=== PATIENT | female | born 1995 ===

== ENCOUNTER 2021-04-10 15:26 | Outpatient (CLI) | payer OTHER ==
--- NOTE | 2021-04-10 17:34 | Ultrasound Report ---
ULTRASOUND OBSTETRIC LIMITED INDICATION / CLINICAL INFORMATION: WELL BEING. Clinical Gestational Age (GA): 38.4 weeks.days COMPARISON: None available. FINDINGS: HEART RATE (beats per minute): 150 AMNIOTIC FLUID INDEX (cm) = 15.3 (normal = 7-24 cm) PRESENTATION: Cephalic. ADDITIONAL FINDINGS: None. IMPRESSION: 1. No significant abnormality. Signer Name: Nico Marin MD Signed: 04/10/2021 5:30 PM Workstation Name: [id number]
== END 2021-04-10 18:15 | disposition home or self-care (01) ==
LOC: TRG 15:26 → APU 15:29 → TRG 18:15
PROVIDERS: ATTEND Obstetrics & Gynecology
DX: O36.8130 Decreased fetal movements, third trimester, not applicable or unspecified (principal); Z3A.38 38 weeks gestation of pregnancy
CPT/HCPCS: 59025; 76815

== ENCOUNTER 2021-04-13 02:54 | Inpatient (IN) | payer MEDICAID, OTHER ==
[2021-04-13] MEDS ORDERED: MINERAL OIL 30 ML ORAL LIQD PO PRN (03:50)
[2021-04-13] MEDS ORDERED: fentaNYL 100 MCG/2 ML INJ IV PRN (03:50)
[2021-04-13] MEDS ORDERED: TERBUTALINE 1 MG/1 ML INJ SUB-Q PRN (03:50)
[2021-04-13] MEDS ORDERED: LIDOCAINE (2%) 20 MG/1 ML VIAL 20 ML MDV INFILTRATI ONE (03:50)
[2021-04-13] MEDS ORDERED: NalbUPHINE 10 MG/1 ML INJ IV PRN ×2 (03:50→13:51)
[2021-04-13] MEDS ORDERED: PROMETHAZINE 25 MG TAB PO PRN ×2 (03:50→20:31)
[2021-04-13] MEDS ORDERED: NALOXONE 0.4 MG/1 ML INJ IV PRN (03:50)
[2021-04-13] MEDS ORDERED: ePHEDrine SULFATE 50 MG/1 ML INJ IV PRN (03:50)
[2021-04-13] MEDS ORDERED: OXYTOCIN DRIP 30 UNITS/500 ML BAG IV SCH ×2 (04:00)
--- NOTE | 2021-04-13 04:04 | History and Physical Report ---
History of Present Illness Date of examination: 04/13/21 Date of admission: 04/13/21 Chief complaint: SROM at 2am today History of present illness: at 39.0 wks by 8wk ultrasound not c/w LMP. care at [facility]. Pt c/o LOF at 2am and then came here. Admits to movement. Ctx started at 11pm last night. Denies headache or vaginal bleeding. Partner of pt states pt desires epidural later for pain. Pt speaks english only. Pt came with her records, Rh positive, neg Antibody screen, RPR neg, HepBsAg neg, HIV neg and rubella immune. Past History Past Medical History: no pertinent history Past Surgical History: no surgical history Social history: no significant social history - Obstetrical History Expected Date of Delivery: 04/20/21 Actual Gestation: 39 Week(s) 0 Day(s) : 1 Number of Living Children: 0 Medications and Allergies Allergies Allergy/AdvReac Type Severity Reaction Status Date / Time No Known Allergies Allergy Unverified 04/10/21 16:50 Home Medications Medication Instructions Recorded Confirmed Last Taken Type No Known Home Medications [No 04/10/21 04/10/21 Unknown History Reported Home Medications] Active Meds: Active Medications Ephedrine Sulfate (Ephedrine Sulfate 50 Mg/1 Ml Inj) 10 mg IV Q2M PRN PRN Reason: Hypotension Fentanyl (Fentanyl 100 Mcg/2 Ml Inj) 100 mcg IV Q2H PRN PRN Reason: Pain,Severe (7-10) LABOR PAIN Oxytocin/Sodium Chloride (Pitocin/Ns 30 Unit/500ml) 30 units in 500 mls @ 2 mls/hr IV TITR DARIEN; Protocol Lactated Ringer's (Lactated Ringers) 1,000 mls @ 125 mls/hr IV DIRECT DARIEN Oxytocin/Sodium Chloride (Pitocin/Ns 30 Unit/500ml) 30 units in 500 mls @ 40 mls/hr IV TITR DARIEN; Protocol Lidocaine (Lidocaine (2%) 20 Mg/1 Ml Vial 20 Ml Mdv) 20 ml INFILTRATI ONCE ONE Stop: 04/13/21 03:51 Mineral Oil (Mineral Oil 30 Ml Oral Liqd) 30 ml PO QHS PRN PRN Reason: Constipation Nalbuphine HCl (Nalbuphine 10 Mg/1 Ml Inj) 10 mg IV Q2H PRN PRN Reason: Pain, Moderate (4-6) Naloxone HCl (Naloxone 0.4 Mg/1 Ml Inj) 0.1 mg IV Q2MIN PRN PRN Reason: Res Rate </= 8 or 02 SAT < 92% Promethazine HCl (Promethazine 25 Mg Tab) 25 mg PO Q6H PRN PRN Reason: Nausea And Vomiting Terbutaline Sulfate (Terbutaline 1 Mg/1 Ml Inj) 0.25 mg SUB-Q ONCE PRN PRN Reason: Hyperstimulation/Hypertonicity Review of Systems All systems: negative (SROM and ctx) - Vital Signs Vital signs: Vital Signs Temp 99 F 04/13/21 03:12 Temp Pulse Resp BP Pulse Ox 99 F 93 H 128/76 04/13/21 03:12 04/13/21 03:27 04/13/21 03:27 - Physical Exam Breasts: Positive: deferred Cardiovascular: Regular rate Lungs: Positive: Normal air movement Genitourinary (Female): Positive: normal external genitalia Uterus: Positive: enlarged (non-tender, gravid) Extremities: Positive: normal - Obstetrical FHR: category 1 Uterine Contraction Monitor Mode: External Cervical Dilatation: 2.5 (per triage nurse) Cervical Effacement Percentage: 70 station: -3 Uterine Contraction Pattern: Irregular Results All other labs normal. Assessment and Plan Term IUP with SROM, large baby for gestation; GBS negative 1. Admit for labor and delivery and do routine labs 2. U/S for wt with pt stating baby wt was last done 1month ago and 7lbs 11oz 3. may have IV pain or epidural when desired 4. Plan of care discussed, using blocker and polisher and pt desires trial of labor. All questions encouraged and answered
[2021-04-13 04:35] LABS: Hematocrit 39.9 % (30.3-42.9); Hemoglobin 13.8 gm/dl (10.1-14.3); Mean Corpuscular HGB Conc 35 % (30-34); Mean Corpuscular Volume 93 fl (79-97); Platelet Count 192 K/mm3 (140-440); Red Blood Count 4.28 M/mm3 (3.65-5.03); Red Cell Distribution Width 13.2 % (13.2-15.2)
[2021-04-13] MEDS: LACTATED RINGERS 1,000 ML IV SCH ×2 (04:54→12:06)
--- NOTE | 2021-04-13 04:55 | Ultrasound Report ---
Limited obstetrical ultrasound INDICATION: Term COMPARISON: 04/10/2021 FINDINGS: Term intrauterine is again noted with estimated gestational age of 38 weeks 2 day s which corresponds to the clinical dating of 39 weeks 0 days. cardiac activity was documented at 150 bpm period posterior placenta is free of the internal cervical os. Amniotic fluid volume appea rs within normal limits with SHIRLEY within normal limits at 8.8 cm. Estimated weight is 3469 +/- 5 13 g in the 53rd percentile. Fetus is in a cephalic position. Anatomic survey was not performed. Signer Name: Balwinder Marx MD Signed: 04/13/2021 4:50 AM Workstation Name: [id number]
--- NOTE | 2021-04-13 10:07 | Progress Note ---
Assessment and Plan A: IUP@ 39 wks with SROM Neg GBS p: Continuous monitoring Pain med/Epidural prn Anticipate Subjective - Subjective Date of service: 04/13/21 Principal diagnosis: IUP@ 39 wks Patient reports: movement normal Objective - Vital Signs Vital Signs: Vital Signs - 12hr 04/13/21 04/13/21 04/13/21 03:12 03:27 05:01 Temperature 99 F 98.9 F Pulse Rate 93 H 81 Respiratory 15 Rate Blood Pressure 128/76 115/61 O2 Sat by Pulse Oximetry 04/13/21 04/13/21 04/13/21 07:06 07:35 08:06 Temperature Pulse Rate 77 80 78 Respiratory Rate Blood Pressure 118/57 106/57 122/75 O2 Sat by Pulse Oximetry 04/13/21 04/13/21 04/13/21 08:11 08:24 08:26 Temperature 97.9 F Pulse Rate 85 82 Respiratory 20 Rate Blood Pressure 113/65 O2 Sat by Pulse 98 98 Oximetry 04/13/21 04/13/21 04/13/21 08:31 08:36 08:41 Temperature Pulse Rate 82 90 80 Respiratory Rate Blood Pressure O2 Sat by Pulse 97 97 97 Oximetry 04/13/21 04/13/21 04/13/21 08:46 08:51 08:56 Temperature Pulse Rate 74 80 81 Respiratory Rate Blood Pressure O2 Sat by Pulse 97 96 96 Oximetry 04/13/21 04/13/21 04/13/21 09:01 09:06 09:11 Temperature Pulse Rate 78 87 77 Respiratory Rate Blood Pressure O2 Sat by Pulse 97 96 96 Oximetry 04/13/21 04/13/21 04/13/21 09:16 09:21 09:24 Temperature Pulse Rate 90 82 83 Respiratory Rate Blood Pressure 123/76 O2 Sat by Pulse 95 96 Oximetry 04/13/21 04/13/21 04/13/21 09:26 09:31 09:36 Temperature Pulse Rate 85 82 76 Respiratory Rate Blood Pressure O2 Sat by Pulse 96 97 96 Oximetry 04/13/21 04/13/21 04/13/21 09:48 09:53 09:58 Temperature Pulse Rate 77 95 H 81 Respiratory Rate Blood Pressure O2 Sat by Pulse 97 96 96 Oximetry - Exam Breasts: normal Abdomen: Present: normal appearance, soft, normal bowel sounds Vulva: both: normal Uterus: Present: normal FHR: auscultation normal, category 1 Uterine Contraction Monitor Mode: External Cervical Dilatation: 4 Cervical Effacement Percentage: 80 station: -2 Uterine Contraction Pattern: Irregular Uterine Tone Measurement Phase: Resting Uterine Contraction Intensity: Mild Extremities: normal - Labs Labs: Abnormal Labs 04/13/21 03:45 WBC 12.0 H MCHC 35 H Laboratory Results - last 24 hr 04/13/21 04/13/21 04/13/21 03:45 03:45 03:45 WBC 12.0 H RBC 4.28 Hgb 13.8 Hct 39.9 MCV 93 MCH 32 MCHC 35 H RDW 13.2 Plt Count 192 Syphilis IgG Antibody Nonreactive Blood Type O POSITIVE Antibody Screen Positive Antibody Identification Negative
--- NOTE | 2021-04-13 13:50 | Anesthesia Consultation ---
Anesthesia Consult and Med Hx Date of service: 04/13/21 - Airway Anesthetic Teeth Evaluation: Good ROM Head & Neck: Adequate Mental/Hyoid Distance: Adequate Mallampati Class: Class II Intubation Access Assessment: Probably Good - Pulmonary Exam CTA: Yes - Cardiac Exam Cardiac Exam: RRR - Pre-Operative Health Status ASA Pre-Surgery Classification: ASA2 Proposed Anesthetic Plan: Epidural - Pulmonary Hx Smoking: No Hx Asthma: No Hx Sleep Apnea: No - Cardiovascular System Hx Hypertension: No Hx Heart Attack/AMI: No Hx Angina: No - Central Nervous System Hx Seizures: No Hx Psychiatric Problems: No - Gastrointestinal Hx Gastroesophageal Reflux Disease: No - Endocrine Hx Renal Disease: No Hx Liver Disease: No Hx Insulin Dependent Diabetes: No Hx Non-Insulin Dependent Diabetes: No Hx Hypothyroidism: No Hx Hyperthyroidism: No - Hematic Hx Anemia: No Hx Sickle Cell Disease: No - Other Systems Hx Alcohol Use: No Hx Obesity: Yes
[2021-04-13] MEDS ORDERED: diphenhydrAMINE 50 MG/ML VIAL IV PRN (13:51)
[2021-04-13] MEDS ORDERED: NALOXONE 2 MG/2 ML INJ IV PRN (13:51)
[2021-04-13] MEDS ORDERED: ONDANSETRON 4 MG/2 ML INJ IV PRN ×2 (13:51→20:31)
--- NOTE | 2021-04-13 13:51 | Progress Note ---
Labor Epidural - Labor Epidural Start Time: 13:36 Stop Time: 13:47 Performed by:: LILLIANA MARTIN Procedure: Patient is requesting epidural for labor and pain. H&P, labs were reviewed. Patient IDed, H&P reviewed, all questions and concerns were answered, and consent was signed. Timeout was performed at bedside. Patient in sitting position. Sterile prep and drape was performed. 3ml of 1% lidocaine skin wheal at L[3]- L [4]. 18-gauge Tuohy epidural needle was advanced to loss of resistance with saline technique 6cm. Negative CSF negative blood. Epidural catheter advanced to [111] centimeters. [negative] Aspiration [negative] test d ose. Sterile dressing applied. Patient tolerated procedure.
[2021-04-13] MEDS ORDERED: LACTATED RINGERS 250 ML IV SOLN IV ONE (14:51)
[2021-04-13] MEDS ORDERED: fentaNYL-BUPIV 2 MCG/ML-0.125% 200 MCG/100 ML BAG EPIDURAL SCH (15:00)
[2021-04-13] MEDS ORDERED: BENZOCAINE/MENTHOL 20/0.5% TOP SPRAY 56 GM TP PRN (20:31)
[2021-04-13] MEDS ORDERED: MAGNESIUM HYDROXIDE (MOM) ORAL LIQD UDC PO PRN (20:31)
[2021-04-13] MEDS ORDERED: WITCH HAZEL/ GLYCERIN PAD TP PRN (20:31)
[2021-04-13] MEDS ORDERED: HYDROCORTISONE 25 MG RECTAL SUPP PR PRN (20:31)
[2021-04-13] MEDS ORDERED: diphenhydrAMINE 25 MG CAP PO PRN (20:31)
[2021-04-13] MEDS ORDERED: LANOLIN/ZINC/DIMETHICONE (LANSINOH) 7 GM TP PRN ×2 (20:31)
[2021-04-13] MEDS ORDERED: oxyCODONE /ACETAMINOPHEN 5-325MG TAB PO PRN (20:31)
[2021-04-13] MEDS ORDERED: ACETAMINOPHEN 325 MG TAB PO PRN (20:31)
[2021-04-13] MEDS ORDERED: PROMETHAZINE 25 MG RECT SUPP PR PRN (20:31)
--- NOTE | 2021-04-13 20:34 | Procedure Note ---
OB Delivery Note - Delivery Date of Delivery: 04/13/21 Surgeon: ARIC LANDAVERDE JR Estimated blood loss: 200cc - Vaginal Delivery presentation: vertex Delivery position: OA Intrapartum events: none Delivery induction: oxytocin Delivery augmentation: pitocin Delivery monitor: external FHT, external uterine Route of delivery: Delivery placenta: spontaneous Delivery cord: other (body cord x 1) Episiotomy: none Delivery laceration: 2nd degree Delivery repair: vicryl Anesthesia: epidural Delivery comments: Spontaneous delivery of female infant at 2006 with direct bonding with mom after delivery. Weight 3590g, Ht 19.5 in. APGARS 8/9. Second degree perineal laceration repaired with 2-0 Vicryl. Fundus firm below the umbilicus. - Infant A at 1 minute: 8 at 5 minutes: 9 Infant Gender: Female
[2021-04-13] MEDS: IBUPROFEN 600 MG TAB PO SCH (23:40)
[2021-04-14] MEDS: IBUPROFEN 600 MG TAB PO SCH ×3 (05:48→18:20)
[2021-04-14 08:50] LABS: Hematocrit 34.4 % (30.3-42.9); Hemoglobin 11.7 gm/dl (10.1-14.3)
[2021-04-14] MEDS ORDERED: PRENATAL VIT27-FE FUMARATE-FOLIC ACID VIT TAB PO SCH (10:00)
--- NOTE | 2021-04-14 11:10 | Progress Note ---
Assessment and Plan A: PP Day #1 Stable P: Follow Routine Orders D/C Home today per patient request RTO in 6 Weeks Subjective - Subjective Date of service: 04/14/21 Principal diagnosis: IUP@ 39 wks Patient reports: appetite normal, voiding normally, pain well controlled, flatus, ambulating normally [place]: doing well, bottle feeding (and ) Objective - Vital Signs Latest vital signs: Vital Signs Temp Pulse Resp BP Pulse Ox 04/14/21 08:07 97.6 F 79 18 109/59 98 04/14/21 06:43 18 04/14/21 05:48 18 04/14/21 05:19 98.1 F 85 18 93/53 97 04/14/21 00:40 18 04/13/21 23:40 18 04/13/21 22:15 98.5 F 04/13/21 22:05 95 H 97 04/13/21 22:00 89 96 04/13/21 21:55 93 H 97 04/13/21 21:50 93 H 97 04/13/21 21:47 90 107/66 04/13/21 21:45 94 H 97 04/13/21 21:40 99 H 96 04/13/21 21:35 94 H 95 04/13/21 21:30 93 H 96 04/13/21 21:25 94 H 97 04/13/21 21:20 99 H 98 04/13/21 21:17 98 H 126/58 04/13/21 21:15 102 H 99 04/13/21 21:10 103 H 98 04/13/21 21:05 99 H 97 04/13/21 21:00 99 H 97 04/13/21 20:55 99 H 96 04/13/21 20:50 89 98 04/13/21 20:47 98 H 112/58 04/13/21 20:45 102 H 96 04/13/21 20:40 98 H 96 04/13/21 20:35 92 H 96 04/13/21 20:30 107 H 98 04/13/21 20:25 92 H 98 04/13/21 20:20 92 H 122/69 98 04/13/21 20:17 96 H 116/68 04/13/21 20:15 98 H 98 04/13/21 20:10 105 H 98 04/13/21 20:05 122 H 100 05/25/21 20:00 110 H 99 05 19:55 107 H 100 05 19:54 77 88 05 19:50 102 H 98 05 19:48 95 H 122/67 05 19:45 106 H 97 05 19:40 124 H 97 05 19:35 95 H 99 05 19:33 97.9 F 05 19:30 87 100 05 19:25 100 H 100 05 19:20 102 H 100 05 19:17 93 H 108/58 05 19:15 96 H 100 05 19:10 86 100 04/13/21 19:05 109 H 100 04/13/21 19:00 107 H 100 04/13/21 18:55 102 H 100 04/13/21 18:50 105 H 99 04/13/21 18:47 108 H 109/58 04/13/21 18:45 116 H 99 05 18:40 115 H 99 05 18:35 146 H 98 05 18:34 133 H 108/50 05 18:30 59 L 94 04/13/21 18:25 127 H 99 05 18:20 124 H 99 04/13/21 18:18 120 H 122/53 05 18:15 111 H 97 04/13/21 18:10 116 H 97 04/13/21 18:07 133 H 89 04/13/21 18:05 107 H 98 05 18:03 120 H 136/69 05 18:00 120 H 97 05 17:55 103 H 97 05 17:50 93 H 97 05 17:48 94 H 107/60 05 17:45 91 H 96 05 17:43 87 94 05 17:40 82 94 05 17:37 79 94 05 17:35 78 95 05 17:33 79 105/57 05 17:30 81 96 05 17:27 83 94 04/13/21 17:25 89 96 05 17:20 92 H 95 04/13/21 17:18 94 H 106/60 05 17:15 91 H 96 04/13/21 17:10 95 H 97 04/13/21 17:07 98.7 F 04/13/21 17:05 95 H 96 04/13/21 17:00 100 H 96 04/13/21 16:59 86 94 04/13/21 16:55 85 94 04/13/21 16:50 84 96 04/13/21 16:47 80 116/63 05 16:45 84 96 04/13/21 16:40 85 96 04/13/21 16:35 82 97 04/13/21 16:33 88 126/69 05 16:30 88 96 04/13/21 16:25 91 H 97 04/13/21 16:20 85 97 04/13/21 16:17 86 114/67 04/13/21 16:15 89 97 04/13/21 16:13 96 H 94 04/13/21 16:10 84 96 04/13/21 16:09 98.1 F 16 04/13/21 16:05 92 H 96 04/13/21 16:02 83 115/58 04/13/21 16:00 88 95 04/13/21 15:55 74 96 04/13/21 15:53 82 94 04/13/21 15:50 91 H 93 04/13/21 15:48 78 117/57 05 15:47 88 94 04/13/21 15:45 74 96 05 15:42 86 92 05 15:40 76 96 05 15:36 87 94 05 15:35 83 95 05 15:32 76 117/63 05 15:31 90 94 05 15:30 83 96 05 15:25 75 98 05 15:20 86 95 05 15:17 81 118/69 05/ 15:15 87 96 05 15:10 82 96 05 15:05 77 96 05 15:03 75 118/65 05 15:00 88 96 05 14:55 78 96 05 14:53 83 94 05 14:50 74 96 05 14:48 75 118/59 05 14:45 76 96 05 14:42 88 94 05 14:40 74 96 05 14:35 83 97 05 14:30 81 118/65 97 05 14:27 78 115/60 05 14:25 77 97 05 14:24 80 116/61 05 14:21 84 113/58 05 14:20 79 96 05 14:18 73 109/59 05 14:15 76 107/55 96 05 14:12 74 105/56 05 14:10 75 97 05 14:09 75 110/57 05 14:06 83 107/58 05 14:05 82 97 05 14:03 78 107/57 05 14:00 76 109/56 96 05 13:57 75 107/59 05 13:55 82 98 05 13:54 76 105/57 05 13:51 82 114/65 05 13:50 87 97 05 13:48 93 H 123/73 05 13:45 89 129/76 97 05 13:40 91 H 97 05 13:35 93 H 97 05 13:30 100 H 96 05 13:25 86 96 05 13:24 91 H 130/74 05 13:20 88 98 05 13:16 89 94 05 13:15 88 94 05 13:10 80 96 05 13:09 90 93 05 13:05 84 97 05 12:53 90 96 05 12:48 85 97 05 12:47 94 H 93 05/25/21 12:43 81 95 04/13/21 12:38 83 97 04/13/21 12:33 80 95 04/13/21 12:32 91 H 93 04/13/21 12:28 83 95 04/13/21 12:24 86 128/58 04/13/21 12:23 84 95 04/13/21 12:18 81 96 04/13/21 12:13 89 94 04/13/21 12:09 98.5 F 04/13/21 12:08 80 96 04/13/21 12:03 76 97 04/13/21 11:59 18 04/13/21 11:58 90 97 04/13/21 11:53 86 97 04/13/21 11:48 87 97 04/13/21 11:43 82 96 04/13/21 11:38 85 96 04/13/21 11:33 86 96 04/13/21 11:28 75 97 04/13/21 11:24 83 114/70 04/13/21 11:23 83 97 04/13/21 11:18 89 98 04/13/21 11:13 82 97 04/13/21 11:11 86 94 Intake and Output 04/13/21 04/14/21 04/14/21 22:59 06:59 14:59 Intake Total 43.7 480 Output Total 300 600 Balance -256.3 -120 Intake: IV 43.7 PITOCin/NS 30 UNIT/500ML 43.7 30 units In 500 ml @ 2 mls/hr IV TITR DARIEN Rx#: [id number] Oral 480 Output: Urine 300 600 Indwelling Catheter 300 Void 600 Other: Total, Intake Amount 480 Total, Output Amount 300 600 Estimated Blood Loss 200 - Exam Breasts: Present: normal Cardiovascular: Present: Regular rate Lungs: Present: Clear to auscultation, Normal air movement Abdomen: Present: normal appearance, soft, normal bowel sounds Uterus: Present: normal, firm, fundal height at umbilicus Extremities: Present: normal
--- NOTE | 2021-04-14 11:11 | Discharge Summary ---
Providers - Providers Date of Admission: 04/13/21 03:51 Date of discharge: 04/14/21 Attending physician: ELY FINCH Primary care physician: ELY FINCH Hospitalization Reason for admission: rupture of membranes Delivery: Episiotomy: none Laceration: 2nd degree Other procedures: none complications: none Discharge diagnosis: IUP at term delivered [place] baby: female Condition at discharge: Good Disposition: DC-01 TO HOME OR SELFCARE Plan - Provider Discharge Summary Activity: routine, no sex for 6 weeks, no heavy lifting 4 weeks, no strenuous exercise Diet: routine Instructions: routine Additional instructions: [] Smoking cessation referral if applicable(refer to patient education folder for contact #) [] Refer to [facility]'s [facility] Booklet Call your doctor immediately for: * Fever > 100.5 * Heavy vaginal bleeding ( >1 pad per hour) * Severe persistent headache * Shortness of breath * Reddened, hot, painful area to leg or breast * Drainage or odor from incision. * Keep incision clean and dry at all times and follow doctor's instructions regarding bathing/showering - Follow up plan Follow up: ELY FINCH MD [Primary Care Provider] - 6 Weeks
[2021-04-14 17:29] VITALS: BP 108/64
--- NOTE | 2021-04-14 20:06 | Post Anesthesia Evaluation ---
- Post Anesthesia Evaluation Patient Participated: Yes Airway Patent: Yes Stable Respiratory Function: Yes Nausea/Vomiting: No Temp > 96.8F: Yes Pain Manageable: Yes Adequeate Hydration: Yes Anesthesia Complications: No Block Receding Appropriately: Yes Patient on Ventilator: No
== END 2021-04-14 22:05 | disposition home or self-care (01) | DRG 807 ==
LOC: TRG 02:54 → APU 03:02 → TRG 03:50 → LD 03:51 → OBSVTOIN 03:51 → OB 22:24
PROVIDERS: ADMIT Obstetrics & Gynecology; ATTEND Obstetrics & Gynecology
PROC: 3E033VJ Introduction of Other Hormone into Peripheral Vein, Percutaneous Approach (ICD-10-PCS; principal; 2021-04-13)
PROC: 10E0XZZ Delivery of Products of Conception, External Approach (ICD-10-PCS; 2021-04-13)
PROC: 0KQM0ZZ Repair Perineum Muscle, Open Approach (ICD-10-PCS; 2021-04-13)
PROC: 3E0R3BZ Introduction of Anesthetic Agent into Spinal Canal, Percutaneous Approach (ICD-10-PCS; 2021-04-13)
PROC: 00HU33Z Insertion of Infusion Device into Spinal Canal, Percutaneous Approach (ICD-10-PCS; 2021-04-13)
DX: O70.1 Second degree perineal laceration during delivery (principal); Z37.0 Single live birth; Z3A.39 39 weeks gestation of pregnancy; Z20.822 Contact with and (suspected) exposure to COVID-19
CPT/HCPCS: 36415; 59025; 76816; 85014; 85018; 85027; 86592; 86850; 86870; 86900; 86901; G0378; J2590; J3010; J3490; J7120; U0003